=== PATIENT | female | born 1955 | race Caucasian/White ===

== ENCOUNTER 2017-08-15 12:33 | Inpatient (IN) | payer OTHER ==
[2017-08-15] VITALS (10 sets, daily range): BP systolic 96–150; BP diastolic 44–82
[~2017-08-15] VITALS: Ht 167.6 cm; Wt 109.9 kg
--- NOTE | 2017-08-15 13:00 | NUR ---
PT LYING IN BED. PT NO LONGER IN RESP DISTRESS. RESPS EASY AND UNLABORED. PT ABLE TO SPEAK. PT STATES SHE NO LONGER HAS N/V. VSS. WILL CONTINUE TO MONITOR.
--- NOTE | 2017-08-15 13:30 | NUR ---
PT LYING IN BED, PT ASLEEP. AROUSES EASILY. RESPS EASY AND UNLABORED. VSS. NO SIGNS OF DISTRESS OR DISCOMFORT. WILL CONTINUE TO MONITOR.
--- NOTE | 2017-08-15 14:20 | NUR ---
PT STATES "I FEEL THAT MY TONGUE IS GETTING BIGGER THAN IT WAS", DR NOTIFIED. SEE NEW ORDERS. VSS. PT ABLE TO SWALLOW. NO DISTRESS NOTED.
--- NOTE | 2017-08-15 14:30 | NUR ---
PT MEDICATED WITH BENADRYL PER DOCTORS ORDERS. WILL CONTINUE TO MONITOR.
--- NOTE | 2017-08-15 15:15 | NUR ---
PT STATES THAT THE BENADRYL WAS EFFECTIVE. PT LYING IN BED COMFORTABLE AND COOPERATIVE. PT STATES THAT SHE IS NO PAIN AT THIS TIME. NO DISTRESS NOTED. VSS. WILL CONTINUE TO MONITOR.
[2017-08-15 15:56] LABS: BILIRUBIN NEGATIVE (NEGATIVE); BLOOD NEGATIVE (NEGATIVE); CLARITY CLEAR (CLEAR); COLOR YELLOW (YELLOW); GLUCOSE NEGATIVE (NEGATIVE); KETONE NEGATIVE (NEGATIVE); LEUKO ESTERASE NEGATIVE (NEGATIVE); NITRITE NEGATIVE (NEGATIVE); PH 5.5 (5.0-9.0); UROBILINOGEN 0.2 E.U./dl (0.2-1.0)
--- NOTE | 2017-08-15 16:00 | NUR ---
A 62, admitted to [facility], under the services of JESSICA Kaur DO with a diagnosis of ANAPHYLAXIS. Chief complaint is ANAPHYLAXIS AFTER BEE STING. Patient arrived via ambulance from ER. Monitor applied. Initial assessment completed. Vital signs taken and recorded. JESSICA KAUR DO notified of admission to the unit. Orders received. See assessment for past medical history, medications and allergies. Patient and/or family oriented to unit. [facility] visitation policy reviewed. Clothing/patient valuable form completed. JAHAIRA APODACA
[2017-08-15 16:04] LABS: BACTERIA 2+; RBC 0-2 rbc/hpf (0-2); WBC 16-20 wbc/hpf (0-5)
--- NOTE | 2017-08-15 16:10 | NUR ---
PATIENT STILL HAS SWOLLEN TONGUE WITH DIFFICULTY SWOLLOWING & TALKING. HIVES TO CHEST, ARMS, & FACE IMPROVING. HEAD ITCHES AT SITE OF BITE. RN CHECKED AREA TO FIND STINGER AND REMOVED IT. MED REC UPDATED WITH THE PATIENT WHO IS AAOX3. UNABLE TO FIND THE PHARMACY IN THE [place] SO [facility]. FAMILY AWARE OF PATIENT BEING HERE. DR GONGORA MADE AWARE.
[2017-08-15] MEDS ORDERED: OMEPRAZOLE D/R20 MG PO (16:14)
[2017-08-15] MEDS ORDERED: PREVACID30 M2 PO (16:15)
--- NOTE | 2017-08-15 16:34 | NUR ---
DR GONGORA NOTIFIED OF CONTINUED SWELLING
[2017-08-15 16:42] LABS: HEMATOCRIT 40.5 % (37.0-47.0); HEMOGLOBIN 12.5 g/dl (12.0-16.0); MEAN CELL VOLUME 87.1 fl (81.0-99.0); MEAN CORPUSCULAR HGB 26.9 pg (27.0-31.0); MEAN CORPUSCULAR HGB CONC 30.9 g/dl (33.0-37.0); MEAN PLATELET VOLUME 10.2 fl (9.6-12.3); PLATELET COUNT AUTOMATED 220 10*3/uL (130-400); RED BLOOD COUNT 4.65 10*6/uL (4.10-5.10); WHITE BLOOD COUNT 13.8 10*3/uL (4.8-10.8)
[2017-08-15 17:03] LABS: CREATININE 1.6 mg/dL (0.55-1.02); MAGNESIUM 2.1 mg/dL (1.5-2.1); PHOSPHOROUS 3.1 mg/dL (2.5-4.9); POTASSIUM 4.1 mmol/L (3.5-5.1); TOTAL PROTEIN 6.6 gm/dL (6.4-8.2)
[2017-08-15 17:04] LABS: TROPONIN I 0.029 ng/ml (<0.045)
--- NOTE | 2017-08-15 17:05 | NUR ---
PRN BENADRYL & PEPCID GIVEN FOR CONTINUED LIP & TONGUE SWELLING.
[2017-08-15 17:07] LABS: PLATELET SUFFICIENCY NORMAL (NORMAL); TOTAL CELLS COUNTED 100 #CELLS
--- NOTE | 2017-08-15 17:10 | NUR ---
DR PORTER CALLED WITH LAB RESULTS & CONFIRMING SOLU-MEDROL ORDER. IVF INFUSING.
--- NOTE | 2017-08-15 17:27 | NUR ---
ONE TIME DOSE OF SOLU-MEDROL GIVEN FOR LIP & TONGUE SWELLING & FEELING LIKE SOMETHING WAS IN THE BACK OF HER THROAT
--- NOTE | 2017-08-15 17:37 | NUR ---
SLEEPING - RESP NONLABORED & NO SOUNDS OF OBSTRUCTION
--- NOTE | 2017-08-15 18:10 | NUR ---
TRANSFERRED TO ICU 1 VIA BED WITH ALL BELONGINGS. LIPS LESS SWOLLEN. PER THE PATIENT THE FRONT OF HER TONGUE IS LESS SWOLLEN THAN THE BACK OF IT. STILL FEELS LIKE A WATERMELON IS IN THE BACK OF HER THROAT. PATIENT SAID IT IS MUCH BETTER THAN ARRIVAL TO THE FLOOR. NO HIVES. IVF CONTINUE. PATIENT IS HUNGRY AND WANTING TO EAT. TAKING SLOW BITES OF RICE & HOT TEA.
--- NOTE | 2017-08-15 20:10 | NUR ---
1944 UP TO [facility] WITH 1 ASSIST TO VOID. TOLERATED WELL. 1999 RESTING IN BED TALKING ON THE PHONE. ALERT, BUT REMAINS SL DROWSY. PULSE OX 95% ON RA. IV FLUIDS CONT. NO C/O'S VOICED AT PRESENT. SPEECH CLEAR.
--- NOTE | 2017-08-15 22:06 | NUR ---
RESTING IN BED WITH EYES CLOSED. APPEARS TO BE SLEEPING. MONITOR NSR IN THE 60'S.
[2017-08-15] MEDS ORDERED: WELLBUTRIN SR100 MG PO (23:27)
[2017-08-15] MEDS ORDERED: VERAPAMIL240 MG PO (23:27)
[2017-08-15] MEDS ORDERED: VITAMIN D400 UNIT/1 PO (23:28)
[2017-08-16] VITALS: BP 170/80
--- NOTE | 2017-08-16 00:11 | NUR ---
08/15/17 2320 UP TO [facility] TO VOID. MEDICATED WITH TYLENOL 2PO FOR C/O'S H/A AND BENADRYL IV FOR CONT C/O'S THROAT FEELING "FUNNY". WILL MONITOR. REMAINS ALERT.
--- NOTE | 2017-08-16 00:58 | NUR ---
EARLIER MEDS EFFECTIVE. RESTING IN BED WITH EYES CLOSED.
[2017-08-16 04:00] VITALS: BP 166/73
--- NOTE | 2017-08-16 04:20 | NUR ---
REMAINS SLEEPING WIHTOUT DISTRESS.
[2017-08-16 05:00] LABS: HEMOGLOBIN 10.5 g/dl (12.0-16.0); MEAN CELL VOLUME 87.2 fl (81.0-99.0); MEAN CORPUSCULAR HGB 27.5 pg (27.0-31.0); MEAN CORPUSCULAR HGB CONC 31.5 g/dl (33.0-37.0); MEAN PLATELET VOLUME 9.7 fl (9.6-12.3); PLATELET COUNT AUTOMATED 192 10*3/uL (130-400); RED BLOOD COUNT 3.82 10*6/uL (4.10-5.10); RED CELL DISTRI WIDTH 15.9 % (0-14.5); WHITE BLOOD COUNT 9.9 10*3/uL (4.8-10.8)
[2017-08-16 05:10] LABS: HEMATOCRIT 33.3 % (37.0-47.0)
[2017-08-16 05:11] LABS: ACT PARTIAL THROMBO TIME 21.8 SECONDS (20.8-31.5)
[2017-08-16 05:19] LABS: PLATELET SUFFICIENCY NORMAL (NORMAL); TOTAL CELLS COUNTED 100 #CELLS
[2017-08-16 05:20] LABS: ALBUMIN 2.9 gm/dl (3.1-4.5); BUN 22 mg/dl (7-24); CHLORIDE 111 mmol/L (98-107); CHOLESTEROL 176 mg/dL (<200); CREATININE 1.09 mg/dL (0.55-1.02); MAGNESIUM 2.1 mg/dL (1.5-2.1); PHOSPHOROUS 2.9 mg/dL (2.5-4.9); POTASSIUM 4.4 mmol/L (3.5-5.1); SGOT/AST 14 IU/L (3-35); SGPT/ALT 17 U/L (12-78); SODIUM 143 mmol/L (136-145); TOTAL PROTEIN 6.3 gm/dL (6.4-8.2); TRIGLYCERIDES 43 mg/dl (<150); VLDL CHOLESTEROL 9 mg/dL (6-40)
[2017-08-16 05:21] LABS: ALKALINE PHOSPHATASE 71 U/L (45-117); HDL CHOLESTEROL 70 mg/dl (40-60); LDL CHOLESTEROL 97 mg/dL (9-159)
[2017-08-16 05:27] LABS: THYROID STIM HORMONE (HS) 0.841 uIU/ml (0.358-4.75)
--- NOTE | 2017-08-16 06:10 | NUR ---
SLEPT WELL THIS SHIFT. REMAINS WITHOUT C/O'S. IV FLUIDS CONT. CONDITION GUARDED.
[2017-08-16 06:36] LABS: VITAMIN D, 25-HYDROXY 31.4 ng/mL (30-100)
[2017-08-16 08:00] VITALS: BP 155/85; BP 183/80
--- NOTE | 2017-08-16 08:30 | NUR ---
DR COPE WAS MADE AWARE OF PT'S ELEVATED BP. ORDER TO CONTINUE HER VERAPAMIL AT HOME DOSE. I AM WAITING TO SPEAK WITH PT'S PHARMACY SHE DOES NOT KNOW THE DOSES OF HER MEDS.
--- NOTE | 2017-08-16 09:00 | NUR ---
case management attempted to visit with patient, patient was out of room at this time, will see at a later time
[2017-08-16] MEDS ORDERED: WELLBUTRIN SR150 MG PO (09:07)
[2017-08-16] MEDS ORDERED: VERAPAMIL HCL120 M1 PO (09:07)
--- NOTE | 2017-08-16 09:26 | NUR ---
[facility] AND VERIFIED PT'S MEDICATION AND DOSAGES. MED REC UPDATED.
[2017-08-16 12:00] VITALS: BP 154/53
[2017-08-16] MEDS ORDERED: EPIPEN 2-P0.3 MG/0.3 IJ (12:42)
--- NOTE | 2017-08-16 12:48 | NUR ---
Discharge instructions reviewed with patient/family. Patient receptive and verbalizes understanding. Follow-up care arranged. Written instructions given to patient/family. CLAIRE VILLANUEVA
--- NOTE | 2017-08-16 12:48 | NUR ---
DR HOOD IN TO SEE PT AND DISCHARGE ORDERS RECEIVED.
--- NOTE | 2017-08-16 12:52 | NUR ---
PT DISCHARGED TO HOME WITH DAUGHTER.
== END 2017-08-16 12:52 | disposition home or self-care (01) | DRG 917 ==
LOC: ED 12:33 → EDBD 12:34 → ED 12:34 → EDHOLD 15:14 → ICCU 15:14
PROVIDERS: Emergency Medicine; Internal Medicine Nephrology; ADMIT Internal Medicine
DX: T63.441A Toxic effect of venom of bees, accidental (unintentional), initial encounter (principal); N17.0 Acute kidney failure with tubular necrosis; R65.11 Systemic inflammatory response syndrome (SIRS) of non-infectious origin with acute organ dysfunction; E87.2 Acidosis; E44.0 Moderate protein-calorie malnutrition; E66.01 Morbid (severe) obesity due to excess calories; E87.8 Other disorders of electrolyte and fluid balance, not elsewhere classified; R73.9 Hyperglycemia, unspecified; J02.9 Acute pharyngitis, unspecified; I10 Essential (primary) hypertension; K21.9 Gastro-esophageal reflux disease without esophagitis; F42.9 Obsessive-compulsive disorder, unspecified; F50.9 Eating disorder, unspecified; Y92.89 Other specified places as the place of occurrence of the external cause; Z91.030 Bee allergy status; Z88.1 Allergy status to other antibiotic agents; Z88.6 Allergy status to analgesic agent; Z88.8 Allergy status to other drugs, medicaments and biological substances; Z79.899 Other long term (current) drug therapy; Z90.49 Acquired absence of other specified parts of digestive tract; Z90.710 Acquired absence of both cervix and uterus; Z87.891 Personal history of nicotine dependence; Z82.49 Family history of ischemic heart disease and other diseases of the circulatory system; Z82.0 Family history of epilepsy and other diseases of the nervous system; Z68.39 Body mass index [BMI] 39.0-39.9, adult; Z80.42 Family history of malignant neoplasm of prostate